=== PATIENT | female | born 1940 | race Two or more races ===

== ENCOUNTER 2023-07-28 12:40 | Emergency (ER) | payer OTHER ==
[~2023-07-28] VITALS: Ht 152.4 cm; Wt 74.8 kg
[2023-07-28] MEDS ORDERED: AVAPRO150 MG PO (13:38)
[2023-07-28] MEDS ORDERED: LIPITOR20 MG (13:48)
[2023-07-28] MEDS ORDERED: CORGARD40 MG (13:48)
== END 2023-07-28 16:03 | disposition home or self-care (01) ==
LOC: ER 12:40
PROVIDERS: General Practice
DX: R07.9 Chest pain, unspecified (principal); I10 Essential (primary) hypertension; E78.00 Pure hypercholesterolemia, unspecified
CPT/HCPCS: 36415; 93005; 96365; 96372; 99284; J1885; J3490